=== PATIENT | male | born 1990 | race Two or more races ===

== ENCOUNTER 2019-05-29 01:34 | Emergency (ER) | payer OTHER ==
[~2019-05-29] VITALS: Ht 167.6 cm; Wt 113.6 kg
--- NOTE | 2019-05-29 02:06 | PHYS DOC ---
Adult General Chief Complaint Chief Complaint: SORE THROAT HPI HPI 28-year-old male presents the emergency department complaints of sore throat. Patient has a history of tonsillitis, strep throat. He states he is having difficulty swallowing secondary to sore throat. Patient does describe intermittent fever last week, he denies any cough at this time. He does have evidence of exudate pressure on his exam. Patient states he is taken ibuprofen x2 without significant relief. Describes the pain is 7 out of 10 worse with swallowing. Patient has had recent sick contacts. He denies any nausea, vomiting, headache or visual change. Review of Systems Review of Systems Constitutional: Intermittent fever HENT: Sore throat Respiratory: Denies cough or shortness of breath [] Cardiovascular: No additional information not addressed in HPI [] GI: Denies abdominal pain, nausea, vomiting, bloody stools or diarrhea [] Neurologic: Denies headache, focal weakness or sensory changes [] All other systems were reviewed and found to be within normal limits, except as documented in this note. Physical Exam Physical Exam Constitutional: Well developed, well nourished, no acute distress, non-toxic appearance. [] HENT: Normocephalic, atraumatic, bilateral external ears normal, oropharynx moist, positive exudate, erythema to bilateral tonsils., nose normal. [] Neck: Normal range of motion, tenderness palpation no stridor Cardiovascular:Heart rate regular rhythm, no murmur [] Lungs & Thorax: Bilateral breath sounds clear to auscultation [] Skin: Warm, dry, no erythema, no rash. [] Neurologic: Alert and oriented X 3, no focal deficits noted. [] Psychologic: Affect normal, judgement normal, mood normal. [] EKG EKG [] Radiology/Procedures Radiology/Procedures [] Course & Med Decision Making Course & Med Decision Making Pertinent Labs and Imaging studies reviewed. (See chart for details) []28-year-old male presents the emergency department complaints of sore throat. Patient has a history of tonsillitis, strep throat. He states he is having difficulty swallowing secondary to sore throat. Patient does describe intermittent fever last week, he denies any cough at this time. He does have evidence of exudate pressure on his exam. Patient states he is taken ibuprofen x2 without significant relief. Describes the pain is 7 out of 10 worse with swallowing. Patient has had recent sick contacts. He denies any nausea, vomiting, headache or visual change. Physical emanation with evidence of center criteria of 4. Patient with history of fever, exudate, tender cervical adenopathy, no cough Given findings with center criteria will plan for administration of Bicillin LA without further strep testing. Recommend Tylenol Motrin as needed. Follow with primary care physician as needed Dragon Disclaimer Dragon Disclaimer This electronic medical record was generated, in whole or in part, using a voice recognition dictation system. Departure Departure Impression: Primary Impression: Strep pharyngitis Disposition: HOME, SELF-CARE Condition: STABLE Referrals: NO PCP (PCP) Patient Instructions: Strep Throat, [id number] Additional Instructions: Tylenol, Motrin as needed for fever or pain Bicillin LA IM injection Work note provided if fever persists or recurs Discussed findings with patient, recommend follow-up with primary care physician as needed JENNA ARDON MD May 29, 2019 02:06
[2019-05-29 02:13] VITALS: BP 141/77
[2019-05-29] MEDS ORDERED: PENICILLIN G BENZATHINE LA 1,200,000 UNIT/2 ML DISP.SYRIN. IM ONE (02:30)
== END 2019-05-29 02:22 | disposition home or self-care (01) ==
LOC: ER 01:34
DX: J02.0 Streptococcal pharyngitis (principal); B95.0 Streptococcus, group A, as the cause of diseases classified elsewhere
CPT/HCPCS: 96372; 99283; J0561